=== PATIENT | male | born 1950 | race Caucasian/White ===

== ENCOUNTER → 2021-01-13 08:53 | Outpatient (BNVA) | payer MEDICARE, SELFPAY | PROVIDERS: PCP Family Medicine; Visit Provider Family Medicine | DX: I10 Essential (primary) hypertension (principal); E78.5 Hyperlipidemia, unspecified; Z12.5 Encounter for screening for malignant neoplasm of prostate | CPT/HCPCS: 80053; 80061; 85025; G0103 ==

== ENCOUNTER → 2022-02-16 09:00 | Outpatient (BNVA) | payer MEDICARE, SELFPAY | PROVIDERS: PCP Family Medicine; Visit Provider Family Medicine | DX: I10 Essential (primary) hypertension (principal); E78.5 Hyperlipidemia, unspecified; Z12.5 Encounter for screening for malignant neoplasm of prostate; F51.01 Primary insomnia | CPT/HCPCS: 80053; 80061; 82043; 85025; G0103 ==

== ENCOUNTER → 2023-02-15 08:43 | Outpatient (BNVA) | payer MEDICARE, SELFPAY | PROVIDERS: PCP Family Medicine; Visit Provider Family Medicine | DX: I10 Essential (primary) hypertension (principal); E78.5 Hyperlipidemia, unspecified; Z12.5 Encounter for screening for malignant neoplasm of prostate; F51.01 Primary insomnia | CPT/HCPCS: 80053; 80061; 85025; G0103 ==

== ENCOUNTER 2024-02-08 06:00 | Outpatient (RCR) | payer MEDICARE, SELFPAY | END 2024-02-08 23:59 | disposition home or self-care (01) | LOC: SPT 06:00 | PROVIDERS: PCP Family Medicine; Visit Provider Family Medicine | DX: M77.8 Other enthesopathies, not elsewhere classified (principal) | CPT/HCPCS: 97161 ==

== ENCOUNTER 2024-02-09 06:00 | Outpatient (RCR) | payer MEDICARE, SELFPAY | END 2024-02-20 23:59 | disposition home or self-care (01) | LOC: SPT 06:00 | PROVIDERS: PCP Family Medicine; Visit Provider Family Medicine | DX: M77.8 Other enthesopathies, not elsewhere classified (principal) | CPT/HCPCS: 97110 ==

== ENCOUNTER → 2024-02-14 08:29 | Outpatient (BNVA) | payer MEDICARE, SELFPAY | PROVIDERS: PCP Family Medicine; Visit Provider Family Medicine | DX: I10 Essential (primary) hypertension (principal); Z12.5 Encounter for screening for malignant neoplasm of prostate; F17.219 Nicotine dependence, cigarettes, with unspecified nicotine-induced disorders; Z79.899 Other long term (current) drug therapy | CPT/HCPCS: 80053; 80061; 82043; 85025; G0103 ==

== ENCOUNTER 2024-03-10 07:44 | Outpatient (CLI) | payer MEDICARE, SELFPAY ==
--- NOTE | 2024-03-10 08:00 | CT_ITS ---
WS: [id number] LDCT LUNG CANCER SCREENING HISTORY: screening TECHNIQUE: Axial imaging performed from the apices to 1 cm below the costophrenic angles. Coronal and sagittal reformats are submitted with axial MIP series. All CT scans at [facility] use at least one of these dose optimization techniques: automated exposure control; mA and/or kV adjustment per patient size (includes targeted exams where dose is matched to clinical indication); or iterativ e reconstruction. DLP: 62.99 mGy.cm DIvol: Mean CTDIvol: 1.20 (mGy) COMPARISON: None available. Diagnostic quality: Satisfactory Lungs: No pulmonary nodule or mass. No pneumonia. No endobronchial lesions. Heart: Heart is slightly enlarged. Scattered coronary artery calcifications.. Other findings: Atherosclerosis aorta is mild. Pulmonary artery size is equal to the aorta. No medias tinal or hilar adenopathy. Cholelithiasis. Numerous stones in the dependent gallbladder. No adrenal m ass. CT/CT lung screening 29904 IMPRESSION: LUNG-RADS: 1S-Negative with Significant Findings FOLLOW UP: 12 Month: Continue annual screening with LDCT OTHER FINDINGS (S MODIFIER): Cholelithiasis without acute cholecystitis.
== END 2024-03-10 07:45 | disposition home or self-care (01) ==
LOC: RAD 07:44
PROVIDERS: PCP Family Medicine; Visit Provider Family Medicine
DX: F17.219 Nicotine dependence, cigarettes, with unspecified nicotine-induced disorders (principal); K80.20 Calculus of gallbladder without cholecystitis without obstruction
CPT/HCPCS: 71271

== ENCOUNTER → 2024-05-30 08:03 | Outpatient (BNVA) | payer MEDICARE, SELFPAY | PROVIDERS: PCP Family Medicine; Visit Provider Student in an Organized Health Care Education/Training Program | DX: Z12.11 Encounter for screening for malignant neoplasm of colon (principal) | CPT/HCPCS: 99024; 99204 ==

== ENCOUNTER 2024-07-08 10:02 | Day surgery (SDC) | payer MEDICARE, SELFPAY ==
[2024-07-08 10:35] VITALS: BP 126/81; PULSE 86; RESP 18; TEMP 36.4; O2SAT 96; BMI 23.6
[2024-07-08] MEDS: sodium chloride 0.9% 1,000 ML 30 ML IV (10:41)
--- NOTE | 2024-07-08 10:56 | W.PM.OPSFHP ---
Same Day Surgery H&P Indication for Procedure/HPI DATE OF PROCEDURE: July 08, 2024 CHIEF COMPLAINT/INDICATIONFOR SURGICAL PROCEDURE: screening colonoscopy PREOP DIAGNOSIS: screening colonoscopy PLANNED PROCEDURE: Operation Date: 07/08/24 11:30 Proposed Procedures p Colonoscopy 69201, G0121, Z12.11(Not Applicable) - Andrew Caballero MD Medications/Allergies* Home Medications Medication Instructions Recorded Confirmed Type aspirin 81 mg tablet,delayed 81 mg PO DAILY 01/13/20 07/08/24 History release Allergies/Adverse Reactions Allergy/AdvReac Type Severity Reaction Status Date / Time No Known Allergies Allergy Verified 06/24/24 08:43 Current Medications: Generic Name Dose Route Start Last Admin Trade Name Freq PRN Reason Stop Dose Admin Sodium Chloride 1,000 mls @ 30 mls/hr 07/08/24 10:15 07/08/24 10:41 Sodium Chloride 0.9% IV 30 mls/hr .Q24H WENDY Administration Pertinent History/Comorbid Conditions* Medical History (Updated 05/20/24 @ 08:39 by Demarco Zurita MD) Decreased hearing of left ear Cholelithiasis Tobacco use disorder, moderate, dependence Nicotine dependence, cigarettes, with unspecified nicotine-induced disorders Dyslipidemia Essential hypertension Surgical History (Updated 01/13/20 @ 13:41 by Lynn Diamond DO) History of bowel resection Social History Smoking and tobacco/nicotine status: never used tobacco/nicotine Alcohol intake: current Alcohol intake frequency: few times a month Substance/Drug Use: never Pertinent Exam Findings alert, oriented x 3, clear to auscultation bilaterally, regular rate & rhythm and procedure specific exam findings abdomen soft, nt, nd Recommendations Surgery/Procedure today Other Plans: Endoscopy today Coding Level of Care Code Acute Code for Chg Fwd
--- NOTE | 2024-07-08 12:53 | ANES.PREANE2 ---
Pre-Anesthetic Assessment Height/Weight: Height 1.78 m Weight 74.843 kg Temp Pulse Resp BP Pulse Ox O2 Del Method 97.6 F 86 18 126/81 96 Room Air 07/08/24 10:35 07/08/24 10:35 07/08/24 10:35 07/08/24 10:35 07/08/24 10:35 07/08/24 10:35 Preop Diagnosis: screening colonoscopy Operation Date: 07/08/24 11:30 Proposed Procedures p Colonoscopy 03017, G0121, Z12.11(Not Applicable) - Andrew Caballero MD Familial anesthetic complications: None Was Beta Lanette taken within 24 hours: N/A Was Clonidine taken within 24 hours: N/A Last intake: Intake Last Liquid Date 07/07/24 Last Liquid Time 20:00 Last Solid Date 07/06/24 Last Solid Time 18:00 Social Tobacco and No alcohol Exam alert, oriented x 3 and clear to auscultation bilaterally Airway Cervical ROM: within normal limits Mallampati: Class II Dentition: full History/ROS No significant history except as noted Pulmonary None reported CV/HEM Hypertension None reported Hepatic None reported GI None reported Metabolic None reported Musc/skel None reported Neuropsych None reported Anesthetic Plan ASA status: 2 Anesthesia: Anesthesia Evaluation and MAC Risk of > 500 ml blood loss (7ml/kg in children): No Medications/Allergies Home Medications Medication Instructions Recorded Confirmed Last Taken Type aspirin 81 mg tablet,delayed 81 mg PO DAILY 01/13/20 07/08/24 07/07/24 History release atorvastatin 20 mg tablet 20 mg PO DAILY #90 tabs 05/20/24 07/08/24 07/07/24 Rx lisinopril 20 mg tablet 20 mg PO DAILY #90 tabs 05/20/24 07/08/24 07/07/24 Rx quetiapine 50 mg tablet 50 mg PO DAILY #90 tabs 06/24/24 07/08/24 07/07/24 Rx Allergies Allergy/AdvReac Type Severity Reaction Status Date / Time No Known Allergies Allergy Verified 06/24/24 08:43 Current Medications Generic Name Dose Route Start Last Admin Trade Name Freq PRN Reason Stop Dose Admin Sodium Chloride 1,000 mls @ 30 mls/hr 07/08/24 10:15 07/08/24 10:41 Sodium Chloride 0.9% IV 30 mls/hr .Q24H WENDY Administration PFSH Anesthesia Medical History Decreased hearing of left ear Cholelithiasis Tobacco use disorder, moderate, dependence Nicotine dependence, cigarettes, with unspecified nicotine-induced disorders Dyslipidemia Essential hypertension Surgical History History of bowel resection Social History Smoking and tobacco/nicotine status: never used tobacco/nicotine Alcohol intake: current Alcohol intake frequency: few times a month Substance/Drug Use: never Data Anesthesia Cardiac Studies: No Data to Display
[2024-07-08 13:23] VITALS: BP 88/72; PULSE 76; RESP 18; TEMP 36.3; O2SAT 93
[2024-07-08 13:33] VITALS: BP 96/70; PULSE 81; RESP 18; TEMP 36.2; O2SAT 96
--- NOTE | 2024-07-08 13:48 | ANE.PACU2 ---
Inpatient post-anesthesia follow up: Airway intact: Yes Vital signs: Temperature 97.2 F Pulse Rate 81 Respiratory Rate 18 Blood Pressure 96/70 Pulse Oximetry 96 Oxygen Delivery Me thod Room Air Oxygen Flow Rate Fraction of Inspir ed Oxygen Hydration adequate: Yes Nausea and vomiting: No Pain level: 1 Mental status: Baseline
== END 2024-07-08 13:49 | disposition home or self-care (01) ==
PROVIDERS: PCP Family Medicine; Visit Provider Student in an Organized Health Care Education/Training Program
PROC: 0DJD8ZZ Inspection of Lower Intestinal Tract, Via Natural or Artificial Opening Endoscopic (ICD-10-PCS; CPT 45378; principal; 2024-07-08 11:30)
DX: Z12.11 Encounter for screening for malignant neoplasm of colon (principal); K57.30 Diverticulosis of large intestine without perforation or abscess without bleeding; I10 Essential (primary) hypertension; Z79.82 Long term (current) use of aspirin; E78.5 Hyperlipidemia, unspecified; F17.210 Nicotine dependence, cigarettes, uncomplicated
CPT/HCPCS: 45380; G0121; J2704; J7030

== ENCOUNTER → 2025-06-08 09:54 | Outpatient (BNVA) | payer MEDICARE, SELFPAY | PROVIDERS: PCP Family Medicine; Visit Provider Family Medicine | DX: I10 Essential (primary) hypertension (principal); N40.0 Benign prostatic hyperplasia without lower urinary tract symptoms | CPT/HCPCS: 80053; 80061; 84153; 85025 ==

== ENCOUNTER 2025-06-15 06:25 | Outpatient (CLI) | payer MEDICARE, SELFPAY ==
--- NOTE | 2025-06-15 07:00 | CT_ITS ---
WS: [id number] LDCT LUNG CANCER SCREENING HISTORY: screening TECHNIQUE: Axial imaging performed from the apices to 1 cm below the costophrenic angles. Coronal and sagittal reformats are submitted with axial MIP series. All CT scans at [facility] use at least one of these dose optimization techniques: automated exposure control; mA and/or kV adjustment per patient size (includes targeted exams where dose is matched to clinical indication); or iterative reconstruction. DLP: 50.10 mGy.cm DIvol: Mean CTDIvol: 0.90 (mGy) COMPARISON: 03/10/2024 Diagnostic quality: Satisfactory Lungs: Mild pulmonary hyperexpansion. No mass or nodule identified. No pneumonia. No endobronchial lesions. Linear atelectasis or fibrosis adjacent to thoracic spine osteophyte medial RIGHT lower lobe. Heart: Mild cardiomegaly with no pericardial effusion.. Moderate coronary artery calcification. Other findings: Mildly ectatic thoracic aorta. Normal size pulmonary artery. No adenopathy identified. Small hiatal hernia. Cholelithiasis. Numerous stones are visualized in the partially included gallbladder. No adrenal mass. Mild increase in no destructive bone lesions. Thoracic kyphosis. CT/CT lung screening [id number] IMPRESSION: LUNG-RADS: 1-Negative FOLLOW UP: 12 Month: Continue annual screening with LDCT OTHER FINDINGS (S MODIFIER): None.
== END 2025-06-15 06:26 | disposition home or self-care (01) ==
LOC: RAD 06:26
PROVIDERS: PCP Family Medicine; Visit Provider Family Medicine
DX: Z12.2 Encounter for screening for malignant neoplasm of respiratory organs (principal); F17.219 Nicotine dependence, cigarettes, with unspecified nicotine-induced disorders; I51.7 Cardiomegaly; I25.84 Coronary atherosclerosis due to calcified coronary lesion; M40.204 Unspecified kyphosis, thoracic region; K80.20 Calculus of gallbladder without cholecystitis without obstruction; K44.9 Diaphragmatic hernia without obstruction or gangrene; M25.78 Osteophyte, vertebrae; J98.11 Atelectasis
CPT/HCPCS: 71271